=== PATIENT | male | born 1965 | race Caucasian/White ===

== ENCOUNTER 2017-04-23 14:16 | Inpatient (IN) ==
[2017-04-23] MEDS ORDERED: ROBAXIN PO PRN (16:18)
[2017-04-23] MEDS ORDERED: NORCO-10 PO PRN (16:18)
[2017-04-23 16:54] LABS: ALLEN TEST YES; BE 9.7 mmoll (-3.0-3.0); BLOOD TYPE ARTERIAL; DRAW SITE R RADIAL; METHB 1.1 % (0.0-1.5); O2(CT) 19.3 mL/dL (15.0-23.0); PO2(98.6) 71 mmHg (60-100); SAMPLE BLOOD; SAO2 96.4 % (95.0-100.0); THB 15.7 g/dL (11.5-17.4); pH(98.6) 7.32 (7.35-7.45)
[2017-04-23 17:02] LABS: PCO2(98.6) 77 mmHg (35-45)
[2017-04-23 17:03] LABS: MODALITY CANNULA
[2017-04-23] MEDS: DUONEB (A & A) INH PRN ×2 (17:18→19:05)
[2017-04-23 17:43] LABS: MANUAL DIFF NEEDED? NO
[2017-04-23 17:46] LABS: BASO% 0.3 % (0.0-0.8); EOS# 0.26 X1000 (0.0-0.7); EOS% 3.4 % (0.0-10.0); HEMATOCRIT 48.8 % (42.0-52.0); HEMOGLOBIN 15.5 g/dL (14.0-18.0); LYMPH# 2.37 X1000 (1.2-3.4); LYMPH% 30.7 % (20.5-51.1); MCH 29.1 PG (27-31); MCHC 31.8 g/dL (33-37); MCV 91.7 FL (81-99); MONO# 0.75 X1000 (0.11-0.59); MONO% 9.7 % (1.7-9.3); MPV 10.9 FL (7.4-10.4); NEUT% 55.9 % (42.2-75.2); PLT 174 X1000 (130-400); RBC 5.32 XMIL (4.7-6.1)
[2017-04-23] MEDS: GLUCOPHAGE PO SCH (18:10)
[2017-04-23 18:12] LABS: AGAP 7; ALBUMIN 3.7 g/dL (3.5-5.0); ALKALINE PHOSPHATASE 75 U/L (32-122); BUN 14 mg/dL (8-22); CALCIUM 8.5 mg/dL (8.8-10.2); CHLORIDE 95 mmol/L (98-107); COSMO 275; GOT 15 U/L (10-34); GPT 11 U/L (10-44); POTASSIUM 4.7 mmol/L (3.5-5.1); SODIUM 137 mmol/L (136-145); TCO2 35 mmol/L (25-35); TOTAL BILIRUBIN 0.38 mg/dL (0.20-1.00); TOTAL PROTEIN 6.9 g/dL (6.3-8.3)
[2017-04-23] MEDS: LASIX IV SCH (18:28)
[2017-04-23] MEDS: PROTONIX IV SCH (18:29)
[2017-04-23] MEDS: ZOSYN 3.375 GM in NS 50 ML IV SCH (18:29)
[2017-04-23] MEDS: LOVENOX SUBQ SCH (18:30)
--- NOTE | 2017-04-23 18:48 | Diag Imaging Result Doc PS360 ---
EXAM: CHEST-2 VIEWS INDICATION: SOB TECHNIQUE: 2 views COMPARISON: 08/31/2014 FINDINGS: The lungs are grossly clear. There is no discrete pleural fluid collection or pneumothorax. The cardiomediastinal silhouette and central vasculature are grossly unremarkable. IMPRESSION: No evidence of acute pathology by plain radiograph. Electronically signed by Samir Shell 04/23/2017 6:45 PM
[2017-04-23] MEDS: ADVAIR 250/50 DISKUS INH SCH (19:05)
[2017-04-23] MEDS ORDERED: NICODERM PATCH TD PRN (21:08)
[2017-04-23] MEDS: COZAAR PO SCH (22:05)
[2017-04-23] MEDS: NEURONTIN PO SCH (22:05)
[2017-04-23] MEDS: COREG PO SCH (22:05)
[2017-04-23] MEDS: HUMALOG SUBQ SCH (22:05)
[2017-04-23] MEDS: PRAVACHOL PO SCH (22:05)
[2017-04-24] MEDS: ZOSYN 3.375 GM in NS 50 ML IV SCH ×4 (00:39→18:42)
--- NOTE | 2017-04-24 04:43 | HISTORY AND PHYSICAL ---
CHIEF COMPLAINT: Shortness of breath, cough, wheezing, dyspnea on exertion. No chest pain, swelling of feet. HISTORY OF PRESENT ILLNESS: He is a 52-year-old, white gentleman, noncompliant. Came to the office after treating with outpatient treatment with above symptoms. He was very hypoxic. Continues to smoke. He has 2+ pedal edema in both legs. Chest x-ray, had COPD changes, mild CHF. He was admitted to the hospital for decompensated systolic heart failure as well as COPD exacerbation. PAST MEDICAL HISTORY: COPD/asthmatic bronchitis, type 2 diabetes, metabolic syndrome, hypertension, chronic hepatitis C, hyperlipidemia, history of chronic systolic heart failure due to ischemic cardiomyopathy, status post stent in the LAD, EF of 40%, pulmonary hypertension. 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 MEDICATIONS: Aldactone 25 mg daily, aspirin 325 daily, Coreg 6.25 p.o. b.i.d., Cozaar 25 daily, Lanoxin 125 mcg daily, DuoNeb 1 puff q.6, Lasix 40 mg daily, metformin 1000 p.o. b.i.d., MiraLAX as needed, Protonix 40 daily, pravastatin 40 daily, Proventil as needed. ALLERGIES: None known. SOCIAL HISTORY: . One child. Lives in [place]. Smoking half a pack a day. FAMILY HISTORY: Father at the age of 74 with heart failure. Mom is 66, healthy. HEALTH MAINTENANCE: Flu vaccine 2013, pneumococcal 2012. Last prostate exam and PSA March 2017. REVIEW OF SYSTEMS: HEENT: No headache. No vision problem. No earache. No sore throat. Neck: No goiter. No lymphadenopathy. No bruit. Cardiopulmonary: No chest pain, shortness of breath, cough, and wheezing. No PND. No orthopnea, swelling of feet. GI: No nausea, vomiting, abdominal pain. No altered bowel habits, bleeding per rectum. : No history of hesitancy, frequency, dysuria, hematuria. Musculoskeletal: No joint pain. Neurologic: No focal symptoms or weakness. PHYSICAL EXAMINATION: VITAL SIGNS: He is afebrile. Vitals are stable, 87% on 2 L, 6 feet 2 inches, 279 pounds. HEENT: Atraumatic, normocephalic. Plethoric face. TMs are normal. Nose and throat congested. NECK: Supple. JVD slightly elevated. CHEST: Markedly wheezing. CARDIAC: Very distant heart sounds. ABDOMEN: Belly is soft, obese, nontender. Good bowel sounds. RECTAL: Deferred. EXTREMITIES: There is 2+ pedal edema in both legs. NEUROLOGIC: No focal deficits. No signs of gangrene noted. INVESTIGATIONS: CBC: White cell count 7.7, hematocrit 48, platelets 174,000. ABG: PH is 7.32, pCO2 77, PO2 71, bicarb 32 on 2 L. Carboxyhemoglobin 8.2. Sodium 137, potassium 4.7, chloride 95, BUN 14, creatinine 0.9, glucose 105, and calcium 8.5. ProBNP is slightly elevated. Cardiac enzymes are normal. Chest x-ray: Cardiomegaly, mild CHF, and COPD changes, otherwise stable. ASSESSMENT AND PLAN: 1. A 52-year-old, white gentleman admitted to the hospital with shortness of breath due to combination of chronic obstructive pulmonary disease and mild decompensated systolic heart failure. Plan is oxygen judiciously, 1 L. 2. Carboxyhemoglobin is high. Nicotrol patches. 3. Chronic obstructive pulmonary disease. Intravenous Zosyn, Advair bronchodilators, and intravenous steroids. 4. Ischemic cardiomyopathy, ejection fraction of 40%. Lanoxin, Coreg, losartan , intravenous Lasix. 5. Type 2 diabetes. On metformin, sliding scale with insulin coverage. 6. Deep venous thrombosis and gastrointestinal prophylaxis with Lovenox and Protonix respectively. 7. Chronic hepatitis C, stable. Last viral load alpha-fetoprotein is negative. 8. History of coronary artery disease with a stent in the left anterior descending. Continue on aspirin, Imdur, and beta blockers. 9. Hyperlipidemia, on Pravachol. 10. Chronic pain. He was going to the [facility], [facility]one [facility] with Dr. Faustin. 11. Constipation, on MiraLAX. 12. We will follow up. cc: Trenton Valdes MD MTDD
[2017-04-24] MEDS: LASIX IV SCH ×2 (05:38→18:36)
[2017-04-24] MEDS: HUMALOG SUBQ SCH ×4 (06:48→22:12)
[2017-04-24] MEDS: DUONEB (A & A) INH PRN ×4 (07:34→21:45)
[2017-04-24] MEDS: ADVAIR 250/50 DISKUS INH SCH ×2 (07:34→19:35)
[2017-04-24] MEDS: SPIRIVA INH SCH (07:43)
[2017-04-24] MEDS: BREO ELLIPTA 100/25 MCG INH INH SCH (08:25)
[2017-04-24] MEDS ORDERED: SOLU-MEDROL IV SCH (09:00)
[2017-04-24] MEDS: ASPIRIN PO SCH (09:43)
[2017-04-24] MEDS: COZAAR PO SCH ×2 (09:43→20:24)
[2017-04-24] MEDS: GLUCOPHAGE PO SCH ×2 (09:43→17:10)
[2017-04-24] MEDS: MIRALAX PO SCH (09:43)
[2017-04-24] MEDS: NEURONTIN PO SCH ×2 (09:44→20:24)
[2017-04-24] MEDS: IMDUR PO SCH (09:44)
[2017-04-24] MEDS: ALDACTONE PO SCH (09:44)
[2017-04-24] MEDS: COREG PO SCH ×2 (09:44→20:24)
[2017-04-24] MEDS: LANOXIN PO SCH (09:46)
[2017-04-24 14:33] LABS: ALLEN TEST YES; BE 12.1 mmoll (-3.0-3.0); BLOOD TYPE ARTERIAL; DRAW SITE R RADIAL; METHB 0.9 % (0.0-1.5); O2(CT) 19.4 mL/dL (15.0-23.0); PO2(98.6) 50 mmHg (60-100); SAMPLE BLOOD; SAO2 87.7 % (95.0-100.0); THB 16.6 g/dL (11.5-17.4); pH(98.6) 7.33 (7.35-7.45)
[2017-04-24 14:34] LABS: MODALITY CANNULA; PCO2(98.6) 81 mmHg (35-45)
[2017-04-24] MEDS: PROTONIX IV SCH (17:10)
[2017-04-24] MEDS: SODIUM CHLORIDE 0.9% INJ SCH (17:10)
[2017-04-24] MEDS: LOVENOX SUBQ SCH (17:10)
[2017-04-24] MEDS: PRAVACHOL PO SCH (20:25)
--- NOTE | 2017-04-24 20:42 | PROGRESS NOTE ---
DATE: 04/24/2017 NOTE: Level 3 documentation. SUBJECTIVE: Patient was seen twice in the morning as well as in the evening. He was unstable on the floor around noon time. He became hypoxic with wheezing and increased respiratory rate and transferred to the [facility] on BiPAP. This morning he looks stable. He denies any chest pain. Basically shortness of breath and wheezing. He complains of leg cramps after taking Lasix. He still has edema. Slightly orthopnea. REVIEW OF SYSTEMS: Shortness of breath. OBJECTIVE: Vital signs: Temperature is 98 degrees, blood pressure 110/70, BiPAP machine on 93%. Input and output are -2 L. HEENT: Plethoric face. Neck: Supple. Chest: Bilateral wheezing. Heart: Distant heart sounds. Abdomen: Belly is soft, nontender. Good bowel sounds. Extremities: 1+ pedal edema in both legs. Neurologic: No obvious neurological deficits. LABORATORIES AND IMAGING: Arterial blood gases: PH is 7.33, pCO2 81, PO2 50 on 36%. Chest x-ray was stable. ASSESSMENT AND PLAN: 1. Acute respiratory failure due to underlying COPD and CHF. Plan is BiPAP. 2. Edema due to chronic systolic heart failure. IV Lasix and Aldactone. 3. Chronic obstructive pulmonary disease on bronchodilators, Spiriva, Breo and IV antibiotics with Zosyn and IV steroids. 4. Deep venous thrombosis and gastrointestinal prophylaxis with Lovenox and Protonix. 5. Type 2 diabetes. On metformin. 6. Chronic hepatitis C, stable. The patient has been transferred to step-down unit for better nursing care. LEVEL OF DOCUMENTATION: 35 minutes. cc: Trenton Valdes MD
[2017-04-25] MEDS: ZOSYN 3.375 GM in NS 50 ML IV SCH ×4 (01:51→21:39)
[2017-04-25] MEDS: DUONEB (A & A) INH PRN ×4 (04:43→21:42)
[2017-04-25 05:00] LABS: ALLEN TEST YES; BE 14.3 mmoll (-3.0-3.0); BLOOD TYPE ARTERIAL; DRAW SITE R RADIAL; METHB 0.8 % (0.0-1.5); O2(CT) 20.2 mL/dL (15.0-23.0); PO2(98.6) 86 mmHg (60-100); SAMPLE BLOOD; SAO2 97.8 % (95.0-100.0); THB 15.2 g/dL (11.5-17.4); pH(98.6) 7.29 (7.35-7.45)
[2017-04-25 05:02] LABS: MODALITY BI PAP; PCO2(98.6) 96 mmHg (35-45)
[2017-04-25 05:10] LABS: MANUAL DIFF NEEDED? NO
[2017-04-25 05:20] LABS: BASO% 0.1 % (0.0-0.8); EOS# 0.02 X1000 (0.0-0.7); EOS% 0.1 % (0.0-10.0); HEMATOCRIT 46.8 % (42.0-52.0); HEMOGLOBIN 14.7 g/dL (14.0-18.0); IMM GRAN# 0.02 X1000 (0.0-0.04); IMM GRAN% 0.1 % (0.0-0.5); LYMPH# 1.75 X1000 (1.2-3.4); LYMPH% 12.4 % (20.5-51.1); MCH 28.7 PG (27-31); MCHC 31.4 g/dL (33-37); MCV 91.2 FL (81-99); MONO# 1.06 X1000 (0.11-0.59); MONO% 7.5 % (1.7-9.3); MPV 10.7 FL (7.4-10.4); NEUT% 79.8 % (42.2-75.2); PLT 193 X1000 (130-400); RBC 5.13 XMIL (4.7-6.1)
[2017-04-25] MEDS ORDERED: SOLU-MEDROL IV ONE (05:33)
[2017-04-25 05:40] LABS: AGAP 8; BUN 22 mg/dL (8-22); CALCIUM 8.4 mg/dL (8.8-10.2); CHLORIDE 93 mmol/L (98-107); COSMO 284; POTASSIUM 4.8 mmol/L (3.5-5.1); SODIUM 141 mmol/L (136-145); TCO2 40 mmol/L (25-35)
[2017-04-25] MEDS: LASIX IV SCH (05:45)
[2017-04-25] MEDS: SOLU-MEDROL IV SCH ×3 (06:48→21:39)
[2017-04-25] MEDS: HUMALOG SUBQ SCH ×4 (06:48→21:40)
--- NOTE | 2017-04-25 07:46 | Diag Imaging Result Doc PS360 ---
EXAM: CHEST-2 VIEWS INDICATION: hypoxia TECHNIQUE: 3 views COMPARISON: 04/23/2017 FINDINGS: There is mild underexposure at the edges of the lungs. There appears to be mild subsegmental atelectasis has developed at the right lung base. The left lung remains clear. Cardiac silhouette is stable. IMPRESSION: Development of mild atelectasis at the right lung base as described. Electronically signed by Samir Shell 04/25/2017 7:43 AM
[2017-04-25] MEDS: GLUCOPHAGE PO SCH ×2 (08:38→16:19)
[2017-04-25] MEDS: COZAAR PO SCH ×2 (08:38→21:38)
[2017-04-25] MEDS: ASPIRIN PO SCH (08:39)
[2017-04-25] MEDS: COREG PO SCH ×2 (08:39→21:38)
[2017-04-25] MEDS: IMDUR PO SCH (08:39)
[2017-04-25] MEDS: ALDACTONE PO SCH (08:39)
[2017-04-25] MEDS: LANOXIN PO SCH (08:39)
[2017-04-25] MEDS: NEURONTIN PO SCH ×2 (08:39→21:38)
[2017-04-25] MEDS: MIRALAX PO SCH (08:40)
[2017-04-25] MEDS: SUBOXONE 8 MG/2 MG SL SCH ×2 (10:00→21:39)
[2017-04-25] MEDS: ADVAIR 250/50 DISKUS INH SCH ×2 (12:24→21:54)
[2017-04-25] MEDS: SPIRIVA INH SCH (12:24)
[2017-04-25] MEDS: BREO ELLIPTA 100/25 MCG INH INH SCH (12:24)
[2017-04-25] MEDS: LOVENOX SUBQ SCH (15:49)
[2017-04-25] MEDS: PROTONIX IV SCH (15:49)
[2017-04-25] MEDS ORDERED: LEVAQUIN 500 MG/D5W 500 MG/100 ML IVPB IV SCH (21:00)
[2017-04-25] MEDS: PRAVACHOL PO SCH (21:38)
--- NOTE | 2017-04-25 22:06 | PROGRESS NOTE ---
DATE: 04/25/2017 SUBJECTIVE: The patient is not using BiPAP machine. He is withdrawing from smoking, on Suboxone. Denies any chest pain, a little bit shortness of breath, cough, wheezing, swelling is better. He complains of leg cramps from Lasix. REVIEW OF SYSTEMS: Otherwise none reported. OBJECTIVE: Vital signs: Temperature is 98 degrees, pulse is 67, blood pressure is 110/66, 93%. Input and output -650 mL. HEENT: Atraumatic, normocephalic. Pupils equal, reactive to light. Plethoric face. Chest: Bilateral expiratory wheezing. Heart: Sounds are very distant. Abdomen: Belly is soft, nontender. Good bowel sounds. No masses palpable. 1+ pedal edema in both legs. Neurologic: No obvious neurological deficits. INVESTIGATIONS: CBC: White cell count 14, hematocrit 46, platelets 193,000. ABG: PH is 7.29, pCO2 96, PO2 86, on BiPAP 50%. SMA7: Sodium 140, potassium 4.8, chloride 93, BUN 22, creatinine 0.9, glucose 193. Calcium 8.4. ProBNP is done. Cardiac enzymes were negative. Chest x-ray: Questionable right lower lobe pneumonia. ASSESSMENT AND PLAN: 1. Acute respiratory failure with underlying COPD. Retaining CO2. Continue on Nicotrol patches, oxygen, BiPAP as needed, bronchodilators, IV steroids, IV antibiotics with Zosyn and add Levaquin. 2. Ischemic cardiomyopathy, stable. Continue present medical therapy. 3. Tobacco abuse. Nicotine cessation programs. 4. Chronic pain. Withdrawals. We will initiate Suboxone. 5. CHF. Decrease IV Lasix once daily. LEVEL OF DOCUMENTATION: 25 minutes. cc: Trenton Valdes MD
[2017-04-25] MEDS: LEVAQUIN 500 MG/D5W 500 MG/100 ML IVPB IV SCH ×2 (22:24→23:00)
[2017-04-26] MEDS: ZOSYN 3.375 GM in NS 50 ML IV SCH ×4 (02:31→20:45)
[2017-04-26] MEDS: SOLU-MEDROL IV SCH ×4 (05:44→22:21)
[2017-04-26] MEDS: HUMALOG SUBQ SCH ×4 (06:12→21:05)
[2017-04-26] MEDS: MIRALAX PO SCH (08:13)
[2017-04-26] MEDS: ADVAIR 250/50 DISKUS INH SCH ×2 (08:14→21:15)
[2017-04-26] MEDS: ASPIRIN PO SCH (08:14)
[2017-04-26] MEDS: IMDUR PO SCH (08:15)
[2017-04-26] MEDS: ALDACTONE PO SCH (08:15)
[2017-04-26] MEDS: NEURONTIN PO SCH ×2 (08:15→20:45)
[2017-04-26] MEDS: COZAAR PO SCH ×2 (08:15→20:45)
[2017-04-26] MEDS: COREG PO SCH ×2 (08:15→20:45)
[2017-04-26] MEDS: BREO ELLIPTA 100/25 MCG INH INH SCH (08:15)
[2017-04-26] MEDS: GLUCOPHAGE PO SCH ×2 (08:16→16:21)
[2017-04-26] MEDS: LANOXIN PO SCH (08:17)
[2017-04-26] MEDS: SUBOXONE 8 MG/2 MG SL SCH ×2 (08:17→21:15)
[2017-04-26] MEDS ORDERED: LASIX IV SCH (09:00)
[2017-04-26] MEDS: SPIRIVA INH SCH (15:15)
[2017-04-26] MEDS: DUONEB (A & A) INH PRN ×2 (15:15→21:15)
[2017-04-26] MEDS: LOVENOX SUBQ SCH (16:21)
[2017-04-26] MEDS: PROTONIX IV SCH (16:22)
[2017-04-26] MEDS: SODIUM CHLORIDE 0.9% INJ SCH (16:22)
[2017-04-26] MEDS: PRAVACHOL PO SCH (20:45)
[2017-04-27] MEDS: ZOSYN 3.375 GM in NS 50 ML IV SCH ×4 (02:17→20:42)
[2017-04-27] MEDS: DUONEB (A & A) INH PRN ×4 (03:05→21:46)
[2017-04-27 05:33] LABS: ALLEN TEST YES; BE 13.9 mmoll (-3.0-3.0); BLOOD TYPE ARTERIAL; DRAW SITE R RADIAL; METHB 0.9 % (0.0-1.5); O2(CT) 21.3 mL/dL (15.0-23.0); PO2(98.6) 98 mmHg (60-100); SAMPLE BLOOD; THB 15.7 g/dL (11.5-17.4); pH(98.6) 7.38 (7.35-7.45)
[2017-04-27 05:35] LABS: MODALITY BI PAP; PCO2(98.6) 73 mmHg (35-45)
--- NOTE | 2017-04-27 05:36 | PROGRESS NOTE ---
DATE: 04/26/2017 SUBJECTIVE: 1. The patient is complaining of itching while getting IV Levaquin. 2. Patient also choked while drinking liquids while on the BiPAP machine. Still coughing up, shortness of breath. Swelling is improved. REVIEW OF SYSTEMS: None reported. OBJECTIVE: On exam, he is on 5 L nasal cannula 95%. Temp is 98 degrees, pulse is 73, respirations 18, blood pressure is 128/69. LABS: No labs were done. ASSESSMENT AND PLAN: 1. Acute respiratory failure with underlying chronic obstructive pulmonary disease on BiPAP machine at nighttime. 2. Chronic pain on Suboxone. 3. Chronic nicotine abuse. Nicotrol patches. 4. Questionable itching from Levaquin. Will discontinue Levaquin. 5. Chronic ischemic cardiomyopathy, congestive heart failure stable. 6. Deep venous thrombosis and gastrointestinal prophylaxis, as per the order sheet. 7. Continue present medical therapy. 8. Elevated blood sugar due to prednisone. Continue to monitor on sliding scale with insulin coverage. 9. We will repeat the blood gas in the morning. LEVEL OF DOCUMENTATION: 25 minutes. cc: Trenton Valdes MD
[2017-04-27] MEDS: SOLU-MEDROL IV SCH ×3 (05:55→20:41)
[2017-04-27] MEDS: HUMALOG SUBQ SCH ×5 (05:56→20:42)
[2017-04-27] MEDS: BREO ELLIPTA 100/25 MCG INH INH SCH (07:25)
[2017-04-27] MEDS: ADVAIR 250/50 DISKUS INH SCH ×2 (07:25→18:56)
[2017-04-27] MEDS: SPIRIVA INH SCH (07:25)
[2017-04-27] MEDS: NEURONTIN PO SCH ×2 (09:40→20:43)
[2017-04-27] MEDS: COREG PO SCH ×2 (09:40→20:43)
[2017-04-27] MEDS: IMDUR PO SCH (09:40)
[2017-04-27] MEDS: GLUCOPHAGE PO SCH ×2 (09:40→16:47)
[2017-04-27] MEDS: MIRALAX PO SCH ×2 (09:40→09:45)
[2017-04-27] MEDS: LANOXIN PO SCH (09:40)
[2017-04-27] MEDS: ALDACTONE PO SCH (09:40)
[2017-04-27] MEDS: COZAAR PO SCH ×2 (09:43→20:43)
[2017-04-27] MEDS: SUBOXONE 8 MG/2 MG SL SCH (09:43)
[2017-04-27] MEDS: ASPIRIN PO SCH (09:43)
[2017-04-27] MEDS: LASIX IV SCH (09:43)
[2017-04-27] MEDS: LOVENOX SUBQ SCH (16:47)
[2017-04-27] MEDS: PROTONIX PO SCH (16:47)
--- NOTE | 2017-04-27 18:33 | PROGRESS NOTE ---
DATE: 04/27/2017 SUBJECTIVE: The patient is a little better. Using BiPAP machine in the night time. Decreased swelling of feet. No chest pain. Still wheezing and shortness of breath. REVIEW OF SYSTEMS: None reported. OBJECTIVE: Vital Signs: Afebrile. Pulse is 60. Respirations 20. Blood pressure is 128 x 77, 3 L nasal cannula 90%. HEENT: Plethoric face. Neck: Supple. Chest: Bilateral expiratory wheezing. Heart: Sounds are very distant. Abdomen: Belly is soft, nontender. Extremities: Decreased peripheral edema. Neurologic: No obvious neurological deficits. INVESTIGATIONS: ABG, pH is 7.38, pCO2 73, PO2 98, BiPAP of 14/6 on 35% FiO2. ASSESSMENT: 1. Acute respiratory failure with underlying chronic obstructive pulmonary disease. Continue on BiPAP in the nighttime. Decrease IV steroids from 60-40 mg q.8. 2. Chronic systolic heart failure due to ischemic cardiomyopathy, improving. Decreased IV Lasix 40 IV once a day. Continue present medical therapy. 3. Elevated blood sugar from steroids. Continue on metformin and sliding scale with insulin coverage. 4. Hyperlipidemia on Pravachol and chronic obstructive pulmonary disease with possible right lower lobe pneumonia. IV Zosyn and bronchodilators. 5. Chronic pain on Suboxone. 6. Tobacco abuse. Continue to abstain from smoking. PLAN: We will continue present therapy and repeat the labs CBC, SMA 7, chest x- ray, ABG on Sunday. LEVEL OF DOCUMENTATION: Twenty-five minutes. cc: Trenton Valdes MD MTDD
[2017-04-27] MEDS: PRAVACHOL PO SCH (20:43)
[2017-04-28] MEDS: SUBOXONE 8 MG/2 MG SL SCH ×3 (02:10→22:31)
[2017-04-28] MEDS: SOLU-MEDROL IV SCH ×4 (02:11→22:26)
[2017-04-28] MEDS: DUONEB (A & A) INH PRN ×4 (03:22→21:34)
[2017-04-28] MEDS: ZOSYN 3.375 GM in NS 50 ML IV SCH ×4 (03:23→22:24)
[2017-04-28] MEDS: HUMALOG SUBQ SCH ×4 (06:09→22:25)
[2017-04-28] MEDS: ADVAIR 250/50 DISKUS INH SCH ×2 (07:10→19:07)
[2017-04-28] MEDS: SPIRIVA INH SCH (07:10)
[2017-04-28] MEDS: BREO ELLIPTA 100/25 MCG INH INH SCH (07:10)
[2017-04-28] MEDS: GLUCOPHAGE PO SCH ×2 (08:02→16:33)
[2017-04-28] MEDS: LASIX IV SCH (08:02)
[2017-04-28] MEDS: NEURONTIN PO SCH ×2 (08:02→22:24)
[2017-04-28] MEDS: ASPIRIN PO SCH (08:02)
[2017-04-28] MEDS: LANOXIN PO SCH (08:03)
[2017-04-28] MEDS: COREG PO SCH ×2 (08:04→22:25)
[2017-04-28] MEDS: COZAAR PO SCH ×2 (08:04→22:25)
[2017-04-28] MEDS: IMDUR PO SCH (08:04)
[2017-04-28] MEDS: ALDACTONE PO SCH (08:04)
[2017-04-28] MEDS: MIRALAX PO SCH (08:06)
--- NOTE | 2017-04-28 13:24 | PROGRESS NOTE ---
DATE: 04/28/2017 SUBJECTIVE: Mr. Adames is a 52-year-old white gentleman admitted to the hospital with increasing shortness of breath, decreased exercise tolerance, leg swelling. The patient found to have acute on chronic respiratory failure, decompensated congestive heart failure and COPD exacerbation. Since admission, patient is doing some better. He is requiring BiPAP. The patient still has some cough with scanty sputum production. No typical chest pain or palpitation. No nausea or vomiting. Denied any diarrhea, blood or mucus in the stool. No dysuria or hematuria. PAST MEDICAL HISTORY: Significant for COPD, NIDDM, hypertension, chronic hepatitis C, hyperlipidemia, history of chronic systolic heart failure due to ischemic cardiomyopathy with pulmonary hypertension. Admission history and physical noted. OBJECTIVE: Vital Signs: On examination, his vital signs revealed blood pressure 133/80, pulse 64, respirations 20, temperature 97.9 degrees. Skin: Patient does have plethoric face. Pupils reacting to light. No pharyngeal congestion. Ears and nose benign. Neck: Supple. No JVD, thyromegaly or lymphadenopathy. Chest: Bilateral good air entry present. Bibasilar crepitation. Occasional wheezing. Cardiovascular: S1 and S2 heard. There is a 2/6 systolic murmur at the apex. Abdomen: Soft, globular. Bowel sounds present. Extremities: No cyanosis, clubbing. Leg swelling improved. No acute DVT. ADVANCED REGISTERED NURSE: Alert, awake, able to move all 4 limbs. LABS: The patient's blood gas done yesterday noted. Admission lab data and history and physical reviewed. CONSIDERATION: 1. Acute on chronic respiratory failure. 2. Chronic obstructive pulmonary disease exacerbation, uncompensated. 3. Systolic heart failure. 4. Non insulin-dependent diabetes mellitus. 5. Hypertension. 6. Morbid obesity. 7. Ischemic cardiomyopathy. Patient admission chest x-ray did not reveal any acute lung pathology. I am going to repeat blood work and chest x-ray tomorrow. Continue current treatment. Close observation. Overall plan discussed with the patient, and he is in agreement. cc: MD Trenton Mcwilliams MD
[2017-04-28] MEDS: LOVENOX SUBQ SCH (16:33)
[2017-04-28] MEDS: PROTONIX PO SCH (16:33)
[2017-04-28] MEDS: PRAVACHOL PO SCH (22:24)
[2017-04-29] MEDS: DUONEB (A & A) INH PRN ×4 (03:24→21:46)
[2017-04-29] MEDS: ZOSYN 3.375 GM in NS 50 ML IV SCH ×4 (04:00→20:20)
[2017-04-29 04:45] LABS: ALLEN TEST YES; BLOOD TYPE ARTERIAL; DRAW SITE R RADIAL; O2(CT) 21.2 mL/dL (15.0-23.0); PO2(98.6) 78 mmHg (60-100); SAMPLE BLOOD; SAO2 97.1 % (95.0-100.0); pH(98.6) 7.32 (7.35-7.45)
[2017-04-29 04:46] LABS: MODALITY BI PAP
[2017-04-29 04:47] LABS: PCO2(98.6) 88 mmHg (35-45)
[2017-04-29] MEDS: SOLU-MEDROL IV SCH ×4 (05:07→22:03)
[2017-04-29] MEDS: SODIUM CHLORIDE 0.9% INJ SCH (05:07)
[2017-04-29 05:51] LABS: BASO% 0.1 % (0.0-0.8); HEMATOCRIT 48.5 % (42.0-52.0); HEMOGLOBIN 15.3 g/dL (14.0-18.0); IMM GRAN# 0.03 X1000 (0.0-0.04); IMM GRAN% 0.3 % (0.0-0.5); LYMPH# 0.72 X1000 (1.2-3.4); LYMPH% 8.2 % (20.5-51.1); MANUAL DIFF NEEDED? YES; MCH 28.5 PG (27-31); MCHC 31.5 g/dL (33-37); MCV 90.5 FL (81-99); MONO% 4.6 % (1.7-9.3); MPV 11.5 FL (7.4-10.4); NEUT% 86.8 % (42.2-75.2); PLT 141 X1000 (130-400); RBC 5.36 XMIL (4.7-6.1)
[2017-04-29 05:54] LABS: AGAP 5; ALBUMIN 3.6 g/dL (3.5-5.0); ALKALINE PHOSPHATASE 58 U/L (32-122); BUN 31 mg/dL (8-22); CALCIUM 8.7 mg/dL (8.8-10.2); CHLORIDE 96 mmol/L (98-107); COSMO 293; GOT 9 U/L (10-34); GPT 12 U/L (10-44); MAGNESIUM 1.9 mg/dL (1.5-2.7); POTASSIUM 5.1 mmol/L (3.5-5.1); SODIUM 140 mmol/L (136-145); TCO2 39 mmol/L (25-35); TOTAL BILIRUBIN 0.31 mg/dL (0.20-1.00); TOTAL PROTEIN 6.1 g/dL (6.3-8.3)
[2017-04-29 06:21] LABS: LYMPHS 16 % (21-51)
[2017-04-29] MEDS: HUMALOG SUBQ SCH ×4 (06:27→20:21)
--- NOTE | 2017-04-29 08:18 | Diag Imaging Result Doc PS360 ---
EXAM: CHEST-2 VIEWS HISTORY: hypoxia TECHNIQUE: Two views COMPARISON: 04/25/2017 FINDINGS: The lungs are hyperexpanded. The heart is borderline mildly prominent. The vessels are not distended. There is an infiltrate posteriorly in the right lower lobe. The left lung is clear. IMPRESSION: Right lower lobe pneumonia. Electronically signed by Josse Munguia 04/29/2017 8:16 AM
[2017-04-29] MEDS: GLUCOPHAGE PO SCH ×2 (08:26→17:20)
[2017-04-29] MEDS: ALDACTONE PO SCH (08:26)
[2017-04-29] MEDS: IMDUR PO SCH (08:26)
[2017-04-29] MEDS: ASPIRIN PO SCH (08:26)
[2017-04-29] MEDS: NEURONTIN PO SCH ×2 (08:27→20:22)
[2017-04-29] MEDS: LASIX IV SCH (08:29)
[2017-04-29] MEDS: SUBOXONE 8 MG/2 MG SL SCH ×2 (08:29→20:57)
[2017-04-29] MEDS: LANOXIN PO SCH (08:30)
[2017-04-29] MEDS: MIRALAX PO SCH (08:31)
[2017-04-29] MEDS: COREG PO SCH ×2 (08:31→22:00)
[2017-04-29] MEDS: COZAAR PO SCH ×2 (08:32→20:22)
[2017-04-29] MEDS: ADVAIR 250/50 DISKUS INH SCH ×2 (09:24→19:23)
[2017-04-29] MEDS: BREO ELLIPTA 100/25 MCG INH INH SCH (09:25)
[2017-04-29] MEDS: SPIRIVA INH SCH (09:25)
[2017-04-29] MEDS: DOXYCYCLINE PO SCH ×2 (10:47→20:22)
[2017-04-29] MEDS: LOVENOX SUBQ SCH (15:24)
[2017-04-29] MEDS: PROTONIX PO SCH (15:29)
--- NOTE | 2017-04-29 15:30 | PROGRESS NOTE ---
DATE: 04/29/2017 SUBJECTIVE: Mr. Adames is feeling much better. Cough and chest congestion improving. No nausea or vomiting. No high-grade fever or chills. The patient claimed he was decreasing his oxygen by himself as he does not want to go home on oxygen. The patient advised not to touch the oxygen flow. Chest x-ray done this morning did reveal right lower lobe pneumonia. Clinically patient is doing better. OBJECTIVE: Vital signs: Noted. Patient is afebrile. Lungs: Bibasilar crepitation. Heart: S1 and S2 heard. Abdomen: Soft, globular. Bowel sounds present. CORPORATE PILOT: Alert, awake, able to move all 4 limbs. No acute DVT. LAB DATA: Done today, WBC count 8.78, hemoglobin 15.3, hematocrit 48.5, platelet count 141,000. Blood gas did reveal pCO2 of 88, pH 7.32. Advised patient not to touch oxygen flow. Electrolytes result reviewed. I am going to decrease his steroid to 40 mg IV q.8 instead of 60. I am going to add Mucomyst nebulizer treatment. Chest x-ray did reveal right lower lobe pneumonia. The patient is on Zosyn. Continue rest of the treatment. I am going to add doxycycline for atypical coverage. PROBLEMS: Include. 1. Acute on chronic respiratory failure. 2. Right lower lobe pneumonia. 3. Diabetes mellitus. 4. Obesity. 5. Hypertension. Overall plan discussed with the patient and he is in agreement. cc: MD Trenton Mcwilliams MD
[2017-04-29] MEDS: MUCOMYST 20% INH SCH (19:23)
[2017-04-29] MEDS: PRAVACHOL PO SCH (20:22)
[2017-04-30] MEDS: ZOSYN 3.375 GM in NS 50 ML IV SCH ×3 (03:17→15:19)
[2017-04-30] MEDS: DUONEB (A & A) INH PRN ×4 (03:35→19:05)
[2017-04-30] MEDS: SOLU-MEDROL IV SCH ×2 (05:56→18:30)
[2017-04-30] MEDS: HUMALOG SUBQ SCH ×5 (05:57→20:02)
[2017-04-30] MEDS: SPIRIVA INH SCH (07:35)
[2017-04-30] MEDS: MUCOMYST 20% INH SCH ×2 (07:35→19:05)
[2017-04-30] MEDS: BREO ELLIPTA 100/25 MCG INH INH SCH (07:36)
[2017-04-30] MEDS: ADVAIR 250/50 DISKUS INH SCH ×2 (07:36→19:05)
[2017-04-30] MEDS: GLUCOPHAGE PO SCH ×2 (08:01→16:03)
[2017-04-30] MEDS: MIRALAX PO SCH (08:28)
[2017-04-30] MEDS: COREG PO SCH ×2 (08:28→20:02)
[2017-04-30] MEDS: LANOXIN PO SCH (08:28)
[2017-04-30] MEDS: DOXYCYCLINE PO SCH ×2 (08:28→20:02)
[2017-04-30] MEDS: ASPIRIN PO SCH (08:29)
[2017-04-30] MEDS: SUBOXONE 8 MG/2 MG SL SCH ×2 (08:29→20:02)
[2017-04-30] MEDS: IMDUR PO SCH (08:30)
[2017-04-30] MEDS: LASIX IV SCH (08:30)
[2017-04-30] MEDS: ALDACTONE PO SCH (08:30)
[2017-04-30] MEDS: NEURONTIN PO SCH ×2 (08:30→20:02)
[2017-04-30] MEDS: COZAAR PO SCH ×2 (08:30→20:02)
[2017-04-30] MEDS: PROTONIX PO SCH (15:59)
[2017-04-30] MEDS: LOVENOX SUBQ SCH (16:03)
--- NOTE | 2017-04-30 19:31 | PROGRESS NOTE ---
DATE: 04/30/2017 SUBJECT: Events were noted over the weekend. He is using the BiPAP machine. He is extremely short of breath. He is asking for evaluation home oxygen and Trilogy machine. REVIEW OF SYSTEMS: None reported. OBJECTIVE: Vital Signs: Afebrile, pulse is 50, blood pressure 114/67, 93% on room air, I's and O's positive 640 mL. HEENT: Within normal limits. Neck: Supple. No lymphadenopathy. Chest: Decreased wheezing. Heart: Sounds are regular. Belly: Is soft, nontender, good bowel sounds. Extremities: No peripheral edema, cyanosis. Neuro: No neurological deficits. INVESTIGATIONS: CBC is normal on 04/29. ABG pH is 7.32, pCO2 88, 78 on BiPAP, SMA 7 is normal, LFTs were normal. ASSESSMENT AND PLAN: 1. Acute respiratory failure with underlying chronic obstructive pulmonary disease and possible infiltrate in the right lower lobe. Will check the chest x-ray, continue on IV Zosyn. Unable to tolerate Levaquin. He has already started on doxycycline. 2. Evaluation of home oxygen, will check the ABG on room air also pulse oximetry and also on exertion, will do the Air Shovel Operator consult. 3. Type 2 diabetes stable. 4. Coronary artery disease, congestive heart failure stable. Plan of care is continue present medical therapy. Decrease IV steroids and will check the chest x-ray in the morning. LEVEL OF DOCUMENTATION: 25 minutes. cc: Trenton Valdes MD
[2017-04-30] MEDS: PRAVACHOL PO SCH (20:02)
[2017-05-01] MEDS: ZOSYN 3.375 GM in NS 50 ML IV SCH ×5 (00:37→20:34)
[2017-05-01 03:40] LABS: ALLEN TEST YES; BE 13.1 mmoll (-3.0-3.0); BLOOD TYPE ARTERIAL; DRAW SITE R RADIAL; METHB 0.9 % (0.0-1.5); SAMPLE BLOOD; SAO2 87.1 % (95.0-100.0); pH(98.6) 7.36 (7.35-7.45)
[2017-05-01 03:41] LABS: MODALITY ROOM AIR
[2017-05-01 03:42] LABS: PCO2(98.6) 76 mmHg (35-45); PO2(98.6) 49 mmHg (60-100)
[2017-05-01] MEDS: HUMALOG SUBQ SCH ×4 (06:07→20:35)
[2017-05-01] MEDS: SOLU-MEDROL IV SCH ×2 (06:07→17:52)
--- NOTE | 2017-05-01 07:37 | Diag Imaging Result Doc PS360 ---
CHEST-2 VIEWS - 05/01/2017 INDICATION: hypoxia TECHNIQUE: COMPARISON: 04/29/2017 FINDINGS: There is decrease in the infiltrate in the posterior right costophrenic angle. No new infiltrates. Heart size and pulmonary vascularity are top normal. IMPRESSION: Slight decrease in the right basilar infiltrate/pneumonia. Electronically signed by Jake Hernandez 05/01/2017 7:35 AM
[2017-05-01] MEDS: DUONEB (A & A) INH PRN ×3 (07:55→19:33)
[2017-05-01] MEDS: SPIRIVA INH SCH (07:55)
[2017-05-01] MEDS: BREO ELLIPTA 100/25 MCG INH INH SCH (07:55)
[2017-05-01] MEDS: ADVAIR 250/50 DISKUS INH SCH ×2 (07:55→19:30)
[2017-05-01] MEDS: MUCOMYST 20% INH SCH ×2 (07:55→19:32)
[2017-05-01] MEDS: DOXYCYCLINE PO SCH ×2 (08:55→20:34)
[2017-05-01] MEDS: NEURONTIN PO SCH ×2 (08:55→20:34)
[2017-05-01] MEDS: IMDUR PO SCH (08:55)
[2017-05-01] MEDS: ALDACTONE PO SCH (08:55)
[2017-05-01] MEDS: COREG PO SCH ×2 (08:55→20:34)
[2017-05-01] MEDS: COZAAR PO SCH ×2 (08:55→20:34)
[2017-05-01] MEDS: LASIX IV SCH (08:57)
[2017-05-01] MEDS: LANOXIN PO SCH (08:57)
[2017-05-01] MEDS: SUBOXONE 8 MG/2 MG SL SCH ×2 (08:57→20:34)
[2017-05-01] MEDS: ASPIRIN PO SCH (08:58)
[2017-05-01] MEDS: MIRALAX PO SCH (08:58)
[2017-05-01] MEDS: GLUCOPHAGE PO SCH ×2 (09:02→16:06)
[2017-05-01] MEDS: PROTONIX PO SCH (16:06)
[2017-05-01] MEDS: LOVENOX SUBQ SCH (16:06)
--- NOTE | 2017-05-01 19:13 | PROGRESS NOTE ---
DATE: 05/01/2017 SUBJECTIVE: The patient is still short of breath on exertion. No chest pain. No swelling of feet. REVIEW OF SYSTEMS: None reported. PHYSICAL EXAMINATION: Vital Signs: Afebrile. Vitals are stable. 2 L nasal cannula 93%. HEENT Examination: plethoric face. Chest: Decreased wheezing. Heart: Sounds are regular. Abdomen: Belly is soft, nontender. No peripheral edema. INVESTIGATIONS: Chest x-ray: Right lower lobe infiltrate slowly improving. Labs: ABG on room air: pH is 7.36, pCO2 76, PO2 49 on room air. ASSESSMENT AND PLAN: 1. Acute chronic obstructive pulmonary disease with right lower lobe pneumonia. Continue doxycycline and Zosyn. He will qualify for home oxygen 2 L. Continue on bronchodilators. 2. Hypercapnia, chronic respiratory failure, acute smoking. We will use BiPAP versus CPAP. 3. Social Service consultation. I will hold the discharge. We will make arrangements. The patient is seeking short-term disability. LEVEL OF DOCUMENTATION: 25 minutes. cc: Trenton Valdes MD MTDD
[2017-05-01] MEDS: PRAVACHOL PO SCH (20:34)
[2017-05-02] MEDS: ZOSYN 3.375 GM in NS 50 ML IV SCH ×2 (03:56→10:32)
[2017-05-02] MEDS: SOLU-MEDROL IV SCH (06:11)
[2017-05-02] MEDS: HUMALOG SUBQ SCH ×2 (06:13→12:20)
[2017-05-02] MEDS: SPIRIVA INH SCH (07:57)
[2017-05-02] MEDS: ADVAIR 250/50 DISKUS INH SCH (07:57)
[2017-05-02] MEDS: BREO ELLIPTA 100/25 MCG INH INH SCH (07:57)
[2017-05-02] MEDS ORDERED: PREVNAR 13 IM ONE (08:00)
[2017-05-02] MEDS: LANOXIN PO SCH (10:22)
[2017-05-02] MEDS: GLUCOPHAGE PO SCH (10:28)
[2017-05-02] MEDS: IMDUR PO SCH (10:28)
[2017-05-02] MEDS: NEURONTIN PO SCH (10:28)
[2017-05-02] MEDS: ALDACTONE PO SCH (10:28)
[2017-05-02] MEDS: SUBOXONE 8 MG/2 MG SL SCH (10:29)
[2017-05-02] MEDS: LASIX IV SCH (10:30)
[2017-05-02] MEDS: MIRALAX PO SCH (10:30)
[2017-05-02] MEDS: ASPIRIN PO SCH (10:31)
[2017-05-02] MEDS: DOXYCYCLINE PO SCH (10:31)
[2017-05-02] MEDS: COZAAR PO SCH (10:31)
[2017-05-02] MEDS: COREG PO SCH (10:32)
[2017-05-02 11:07] VITALS: BP 123/75
[2017-05-02] MEDS: MUCOMYST 20% INH SCH (11:26)
--- NOTE | 2017-05-02 20:58 | DISCHARGE SUMMARY ---
ADMISSION DATE: 04/23/2017 DISCHARGE DATE: 05/02/2017 DISCHARGING DIAGNOSIS: Acute respiratory failure due to chronic obstructive pulmonary disease exacerbation. SECONDARY DIAGNOSES: 1. Chronic tobacco abuse. 2. History of asthmatic bronchitis. 3. Type 2 diabetes. 4. Metabolic syndrome. 5. Hypertension. 6. Chronic hepatitis C. 7. Hyperlipidemia. 8. Chronic systolic heart failure due to ischemic cardiomyopathy, ejection fraction 40% with pulmonary hypertension. 9. Right lower lobe pneumonia. 10. Allergic reaction to the Levaquin. PROCEDURES: 1. Noninvasive ventilator support with BiPAP. 2. Home oxygen with PO2 49 on room air and hypercarbia. BRIEF HISTORY: Please see the H and P that was done on 04/23/2017. In brief, he is a 52-year-old white gentleman with above problems, who was admitted to the hospital with shortness of breath, cough, wheezing. No chest pain, with pedal edema. The patient continues to smoke. Chest x-ray showed right lower lobe pneumonia. The patient was admitted in [facility]. HOSPITAL COURSE: He was given BiPAP machine with oxygen, bronchodilators, IV antibiotics, IV steroids. Edema much improved after IV Lasix. Patient developed itching due to Levaquin. Despite aggressive bronchial toilet and IV antibiotics, patient continued to be hypoxic on room air. He also needed noninvasive ventilator support at bedtime. Culinary Worker was consulted. He qualified for home oxygen. Also given strongly to quit smoking. Patient also has chronic pain, under Dr. Faustin on [facility]. At the time of discharge, he has less wheezing. Chest x-ray slightly improved in the right lower lobe pneumonia and he was anxious to go home. LABORATORIES: At the time of discharge, as follows. CBC: White cell count 8.7, hematocrit 48, platelets 141,000. ABG on room air at the time of discharge after treatment for 10 days: PH is 7.36, pCO2 76, PO2 49. SMA 7: Sodium 140, potassium 5.1, chloride 96, BUN 31, creatinine 1.0, glucose 228. LFTs were normal. Chest x-ray: Right lower lobe pneumonia. DISCHARGE INSTRUCTIONS: 1. Pneumococcal vaccine 05/02/2017 given. 2. Home oxygen 2 L. 3. CPAP machine at nighttime. 4. Quit smoking. 5. Lanoxin 125 mcg daily, Proventil rescue inhaler as needed, Pravastatin 40 daily, Coreg 6.25 mg p.o. b.i.d., aspirin 325 daily, Protonix 40 daily, metformin 1000 p.o. b.i.d., isosorbide 30 mg daily, Advair 250/50 one puff p.o. b.i.d., Aldactone 25 mg daily, losartan 25 p.o. b.i.d., Lasix 40 daily, Neurontin 300 p.o. b.i.d., MiraLAX 17 g daily, Robaxin 750 p.o. q. 8, Medrol Dosepak, Augmentin 875 1 tablet p.o. b.i.d. 6. Follow up chest x-ray in 10 days in my office. 7. Short-term disability for 2 weeks. cc: Trenton Valdes MD
== END 2017-05-02 12:56 | disposition home or self-care (01) ==
LOC: DIRADM 14:16 → 4N 15:40 → 3S 04-24 17:39
PROVIDERS: ADMIT Internal Medicine; ATTEND Internal Medicine

== ENCOUNTER 2019-05-12 15:51 | Inpatient (IN) ==
[2019-05-12] MEDS ORDERED: ROBAXIN PO PRN (17:11)
[2019-05-12 17:48] LABS: ALLEN TEST YES; BE 11.3 mmoll (-3.0-3.0); BLOOD TYPE ARTERIAL; HCO3-(ACT) 33.3 mmoll (20.0-26.0); METHB 0.6 % (0.0-1.5); O2(CT) 19.5 mL/dL (15.0-23.0); PO2(98.6) 60 mmHg (60-100); SAMPLE BLOOD; SAO2 94.2 % (95.0-100.0); THB 16.4 g/dL (11.5-17.4); pH(98.6) 7.36 (7.35-7.45)
[2019-05-12 17:50] LABS: O2HB 84.6 % (95.0-99.0); PCO2(98.6) 72 mmHg (35-45)
[2019-05-12 17:51] LABS: MODALITY CANNULA
[2019-05-12 18:07] LABS: BASO# 0.02 X1000 (0.0-0.2); BASO% 0.2 % (0.0-0.8); EOS# 0.15 X1000 (0.0-0.7); EOS% 1.6 % (0.0-10.0); HEMATOCRIT 51.2 % (42.0-52.0); HEMOGLOBIN 16.3 g/dL (14.0-18.0); IMM GRAN# 0.02 X1000 (0.0-0.04); IMM GRAN% 0.2 % (0.0-0.5); LYMPH# 2.24 X1000 (1.2-3.4); LYMPH% 23.5 % (20.5-51.1); MCHC 31.8 g/dL (33-37); MCV 91.1 FL (81-99); MONO# 0.71 X1000 (0.11-0.59); MONO% 7.4 % (1.7-9.3); MPV 9.9 FL (7.4-10.4); NEUT# 6.41 X1000 (1.4-6.5); NEUT% 67.1 % (42.2-75.2); PLT 164 X1000 (130-400); RBC 5.62 XMIL (4.7-6.1); RDW 13.8 % (11.5-14.5); WBC 9.55 X1000 (4.8-10.8)
[2019-05-12] MEDS: SOLU-MEDROL IV SCH (18:08)
[2019-05-12] MEDS: LOVENOX SUBQ SCH (18:08)
[2019-05-12] MEDS: ZOSYN 3.375 GM in NS 50 ML IV SCH ×2 (18:09→23:22)
--- NOTE | 2019-05-12 18:14 | EKG Report ---
Test Performed on : 05/12/2019 5:15:35 PM Test Reason : chest pain Blood Pressure : / mmHG Vent. Rate : 074 BPM Atrial Rate : 074 BPM P-R Int : 138 ms QRS Dur : 116 ms QT Int : 402 ms P-R-T Axes : 069 -71 093 degrees QTc Int : 446 ms Sinus rhythm. with premature ventricular complexes. or fusion complexes Incomplete right bundle branch block Left anterior fascicular block Anterolateral infarct , age undetermined Abnormal ECG When compared with ECG of 24-APR-2018 13:52, fusion complexes are now present T wave inversion now evident in Anterior leads Confirmed by Minor AMIN, Pradeep Meraz ([id number]) on 05/13/2019 7:42:06 AM
[2019-05-12 18:16] LABS: HEMOGLOBIN A1C 8.7 % (4.8-6.0)
[2019-05-12 18:50] LABS: AGAP 14; BUN 10 mg/dL (8-22); CALCIUM 8.9 mg/dL (8.8-10.2); CHLORIDE 93 mmol/L (98-107); CK PROFILE 71 U/L (24-204); COSMO 277; CREATININE 0.7 mg/dL (0.7-1.2); ESTIMATED GFR > 60; GLUCOSE 172 mg/dL (70-104); POTASSIUM 4.4 mmol/L (3.5-5.1); SODIUM 137 mmol/L (136-145); TCO2 30 mmol/L (25-35)
[2019-05-12] MEDS: NEXIUM IV SCH (19:02)
[2019-05-12] MEDS: ZITHROMAX 500 MG/NS 500 MG/250 ML IVPB IV SCH (19:02)
[2019-05-12] MEDS: ADVAIR 250/50 DISKUS INH SCH (19:34)
--- NOTE | 2019-05-12 21:55 | HISTORY AND PHYSICAL ---
CHIEF COMPLAINT: Shortness of breath, cough, wheezing for the last 1 week. HISTORY OF PRESENT ILLNESS: He is a 54-year-old, white gentleman, noncompliant, with a known history of COPD, ischemic cardiomyopathy, noncompliant. Came in with the above symptoms. Patient is extremely wheezing on exertion. Pulse oximetry 86 percent. Smoking. Chest x-ray: COPD changes. Basically admitted to the hospital for acute COPD exacerbation. Denies of any chest pain. No PND. No orthopnea. No swelling of feet. PAST MEDICAL HISTORY: 1. Reactive airway disease. 2. COPD. 3. Type 2 diabetes. 4. Metabolic syndrome. 5. Hypertension. 6. Hyperlipidemia. 7. Chronic hepatitis C virus. 8. CAD with ischemic cardiomyopathy. PAST SURGICAL HISTORY: 1. Right middle finger amputation. 2. 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 3. Stent in the LAD. 4. Cholecystectomy. ALLERGIES: Reported to [facility]. MEDICATIONS: 1. Lanoxin 125 daily. 2. Pravastatin 40 daily. 3. Coreg 6.25 p.o. b.i.d. 4. Aspirin 325 daily. 5. Metformin 1000 p.o. b.i.d. 6. Isosorbide 30 mg daily. 7. Advair 250/50 one puff b.i.d. 8. Aldactone 25 daily. 9. Losartan 25 p.o. b.i.d. 10. Neurontin 300 p.o. b.i.d. 11. MiraLAX 17 g daily. 12. Suboxone strips. 13. Ibuprofen as needed. SOCIAL HISTORY: Lives in [place]. Smoking half a pack a day. Working for [employer]. . One child. FAMILY HISTORY: Father of heart failure at 74. Mom was healthy. HEALTH MAINTENANCE: Flu vaccine in 2017. Pneumococcal vaccine was given on 05/02/2017. REVIEW OF SYSTEMS: HEENT: No headache, no vision problem, no earache, no sore throat. Neck: No goiter. No lymphadenopathy. No bruit. Cardiopulmonary: No chest pain, shortness of breath, cough, wheezing. No PND. No orthopnea. GI: No nausea, vomiting, abdominal pain. No bleeding per rectum. : No history of hesitancy, frequency, dysuria. No swelling of feet. No joint pains. Neurologic: No focal symptoms or weakness. PHYSICAL EXAMINATION: VITAL SIGNS: Temperature is 98 degrees, pulse 79, blood pressure is 150/82, 6 feet tall, 283 pounds. HEENT: Mild respiratory distress. Atraumatic, normocephalic. Pupils equal, reactive to light. TMs are normal. Nose and throat within normal limits. NECK: Supple. No lymphadenopathy. CHEST: Bilateral expiratory wheezing. HEART: Sounds are very distant. Belly is soft, obese, nontender. Good bowel sounds. EXTREMITIES: No peripheral edema, cyanosis. NEUROLOGIC: No obvious neurological deficits. INVESTIGATIONS: CBC: White cell count 9.5, hematocrit 51, platelet 164,000. ABGs: PH is 7.36, pCO2 72, pO2 is 60. Oxyhemoglobin 84.6, carboxyhemoglobin 99.06. SMA 7 is normal. Glucose 172, A1c 8.7. ProBNP is slightly elevated. Chest x-ray: Interstitial fibrosis. ASSESSMENT AND PLAN: A 54-year-old, white gentleman admitted to the hospital with: 1. Acute chronic obstructive pulmonary disease exacerbation. Plan is to quit smoking, Nicotrol patches, intravenous Zosyn, intravenous Zithromax, intravenous steroids. 2. Type 2 diabetes, poorly controlled due to noncompliance. Continue sliding scale with insulin coverage. Continue on metformin. 3. Ischemic cardiomyopathy, stent in the left anterior descending. Continue on Lanoxin, Lasix, isosorbide, Cozaar. 4. Chronic pain, on Suboxone. 5. Deep venous thrombosis and gastrointestinal prophylaxis, as per order sheet. 6. Pneumococcal vaccine 13 was given in 2017. 7. Constipation, on MiraLax. 8. Will follow up. cc: Trenton Valdes MD
[2019-05-12] MEDS: NEURONTIN PO SCH (22:34)
[2019-05-12] MEDS: SUBOXONE 8 MG/2 MG FILM SL SCH (22:34)
[2019-05-12] MEDS: COZAAR PO SCH (22:34)
[2019-05-12] MEDS: HUMALOG SUBQ SCH (22:35)
[2019-05-12] MEDS: PRAVACHOL PO SCH (22:37)
[2019-05-12] MEDS: GLUCOPHAGE PO SCH (22:39)
[2019-05-13] MEDS: SOLU-MEDROL IV SCH ×3 (01:37→16:41)
[2019-05-13] MEDS: ZOSYN 3.375 GM in NS 50 ML IV SCH ×4 (05:15→22:25)
[2019-05-13] MEDS: HUMALOG SUBQ SCH ×4 (06:31→20:37)
[2019-05-13 07:40] LABS: CHOLESTEROL 193 mg/dL (0-200); HDL 38 mg/dL (35-55); LDL 136 mg/dL; TRIGLYCERIDES 94 mg/dL (39-160); VLDL 19 mg/dL
[2019-05-13] MEDS: ADVAIR 250/50 DISKUS INH SCH ×2 (07:49→19:37)
[2019-05-13] MEDS: ASPIRIN PO SCH (09:28)
[2019-05-13] MEDS: LANOXIN PO SCH (09:29)
[2019-05-13] MEDS: ALDACTONE PO SCH (09:29)
[2019-05-13] MEDS: LASIX PO SCH (09:29)
[2019-05-13] MEDS: GLUCOPHAGE PO SCH ×2 (09:29→20:37)
[2019-05-13] MEDS: NEURONTIN PO SCH ×2 (09:30→20:37)
[2019-05-13] MEDS: IMDUR PO SCH (09:30)
[2019-05-13] MEDS: MIRALAX PO SCH (09:30)
[2019-05-13] MEDS: COZAAR PO SCH ×2 (09:30→20:37)
[2019-05-13] MEDS: SUBOXONE 8 MG/2 MG FILM SL SCH (09:32)
[2019-05-13] MEDS: SODIUM CHLORIDE 0.9% INJ SCH (16:41)
[2019-05-13] MEDS: NEXIUM IV SCH (16:41)
[2019-05-13] MEDS: LOVENOX SUBQ SCH (16:41)
[2019-05-13] MEDS: ZITHROMAX 500 MG/NS 500 MG/250 ML IVPB IV SCH (17:22)
[2019-05-13] MEDS: SUBOXONE 8 MG/2 MG SL SCH (20:37)
[2019-05-13] MEDS: AMBIEN PO SCH (20:37)
[2019-05-13] MEDS: PRAVACHOL PO SCH (20:37)
--- NOTE | 2019-05-13 21:09 | PROGRESS NOTE ---
DATE: 05/13/2019 SUBJECTIVE: The patient has shortness of breath. No chest pain. Obviously, the patient stopped taking all the cardiac medicine, cholesterol medicine and diabetic medicines for a while. Continues to smoke. Noncompliant. Complains of insomnia. PHYSICAL EXAMINATION: Vital signs: Temperature is 97.6 degrees, pulse 78, blood pressure is 123/68, 92% on nasal cannula. HEENT: Within normal limits. Plethoric face. Chest: Bilateral wheezing. Heart: Distant heart sounds. Abdomen: Belly is soft, obese. Neurologic: No obvious deficits. INVESTIGATIONS: Discussed with the patient. PCO2 is 72, PO2 is 60. SMA 7 is normal. A1c 8.7, LDL 136. ASSESSMENT AND PLAN: 1. Acute chronic obstructive pulmonary disease exacerbation. Continue present treatment with IV steroids and IV antibiotics with Zithromax and Zosyn, bronchodilators. 2. Type 2 diabetes. Stop taking metformin. Restart and follow sliding scale with insulin coverage. 3. Hyperlipidemia. LDL is high. We will restart on pravastatin 40 mg daily. 4. Chronic pain on Suboxone. 5. Constipation prophylaxis with MiraLAX. 6. Deep vein thrombosis and gastrointestinal prophylaxis. 7. Added Ambien for sleep and will follow up. LEVEL OF DOCUMENTATION: 25 minutes. cc: Trenton Valdes MD MTDD
[2019-05-14] MEDS: SOLU-MEDROL IV SCH ×3 (01:15→17:00)
[2019-05-14] MEDS: ZOSYN 3.375 GM in NS 50 ML IV SCH ×4 (05:07→22:59)
[2019-05-14] MEDS: HUMALOG SUBQ SCH ×4 (06:46→21:36)
[2019-05-14] MEDS: MIRALAX PO SCH (08:17)
[2019-05-14] MEDS: NICODERM PATCH TD PRN (08:17)
[2019-05-14] MEDS: ASPIRIN PO SCH (08:19)
[2019-05-14] MEDS: LASIX PO SCH (08:20)
[2019-05-14] MEDS: GLUCOPHAGE PO SCH ×2 (08:20→21:35)
[2019-05-14] MEDS: LANOXIN PO SCH (08:20)
[2019-05-14] MEDS: ALDACTONE PO SCH (08:21)
[2019-05-14] MEDS: IMDUR PO SCH (08:21)
[2019-05-14] MEDS: SUBOXONE 8 MG/2 MG SL SCH ×2 (08:21→21:32)
[2019-05-14] MEDS: NEURONTIN PO SCH ×2 (08:22→21:36)
[2019-05-14] MEDS: COZAAR PO SCH ×2 (08:22→21:35)
[2019-05-14] MEDS: ADVAIR 250/50 DISKUS INH SCH ×2 (10:12→19:36)
[2019-05-14] MEDS: NEXIUM IV SCH (16:58)
[2019-05-14] MEDS: LOVENOX SUBQ SCH (16:59)
[2019-05-14] MEDS: SODIUM CHLORIDE 0.9% INJ SCH (16:59)
[2019-05-14] MEDS: ZITHROMAX 500 MG/NS 500 MG/250 ML IVPB IV SCH (17:00)
[2019-05-14] MEDS: AMBIEN PO SCH (21:32)
[2019-05-14] MEDS: PRAVACHOL PO SCH (21:35)
--- NOTE | 2019-05-14 21:41 | PROGRESS NOTE ---
DATE: 05/14/2019 SUBJECTIVE: The patient is doing better and complains of wheezing. PHYSICAL EXAMINATION: Vital Signs: Temperature is 98 degrees. Vitals are stable. 93% nasal cannula. General: Plethoric face. Chest: Wheezing. Heart: Sounds distant. Abdomen: Belly is soft, nontender. Neurologic: No obvious deficits. ASSESSMENT AND PLAN: 1. Acute chronic obstructive pulmonary disease exacerbation. Continue present treatment. 2. Ischemic cardiomyopathy, currently stable on present treatment. 3. Discussed with the patient at a long time that he needs to continue for management for diabetes, hyperlipidemia, ischemic heart disease, and quit smoking. 4. Chronic pain, on Suboxone [facility]. 5. We restarted all his home medications except the digoxin. 6. Insomnia, stable. LEVEL OF DOCUMENTATION: 25 minutes. cc: Trenton Valdes MD
[2019-05-15] MEDS: SOLU-MEDROL IV SCH ×3 (04:18→16:51)
[2019-05-15] MEDS: ZOSYN 3.375 GM in NS 50 ML IV SCH ×4 (04:19→23:05)
[2019-05-15] MEDS: HUMALOG SUBQ SCH ×4 (06:14→20:35)
[2019-05-15] MEDS: ADVAIR 250/50 DISKUS INH SCH ×2 (08:12→19:26)
[2019-05-15] MEDS: MIRALAX PO SCH (08:37)
[2019-05-15] MEDS: ALDACTONE PO SCH (08:38)
[2019-05-15] MEDS: COZAAR PO SCH ×2 (08:38→20:35)
[2019-05-15] MEDS: NEURONTIN PO SCH ×2 (08:38→20:35)
[2019-05-15] MEDS: IMDUR PO SCH (08:38)
[2019-05-15] MEDS: GLUCOPHAGE PO SCH ×2 (08:38→20:35)
[2019-05-15] MEDS: LASIX PO SCH (08:38)
[2019-05-15] MEDS: SUBOXONE 8 MG/2 MG SL SCH ×2 (08:42→20:34)
[2019-05-15] MEDS: NICODERM PATCH TD PRN (12:24)
[2019-05-15] MEDS: ASPIRIN PO SCH (12:24)
[2019-05-15] MEDS: LOVENOX SUBQ SCH (18:18)
[2019-05-15] MEDS: SODIUM CHLORIDE 0.9% INJ SCH (18:19)
[2019-05-15] MEDS: NEXIUM IV SCH (18:19)
[2019-05-15] MEDS: ZITHROMAX 500 MG/NS 500 MG/250 ML IVPB IV SCH (18:21)
[2019-05-15] MEDS: PRAVACHOL PO SCH (20:34)
[2019-05-15] MEDS: AMBIEN PO SCH (20:35)
--- NOTE | 2019-05-15 20:52 | PROGRESS NOTE ---
DATE: 05/15/2019 SUBJECTIVE: The patient is doing better. Wheezing is improving. No chest pain. No shortness of breath. He is going to comply with my instructions not to stop any medicines for underlying ischemic heart disease, ischemic cardiomyopathy, and diabetes. REVIEW OF SYSTEMS: None reported. PHYSICAL EXAMINATION: Vital Signs: Temperature is 98 degrees, pulse 68. Vitals are stable. HEENT: Within normal limits. Lungs: Decreased wheezing. Heart: Sounds are regular. Abdomen: Belly is soft, nontender. Neurologic: No obvious deficits. ASSESSMENT AND PLAN: 1. Acute chronic obstructive pulmonary disease is improving. Will repeat the blood gas on room air, evaluation of oxygen. Continue on intravenous steroids, Advair, intravenous antibiotics with Zosyn and Zithromax. 2. Type 2 diabetes, on metformin. 3. Ischemic cardiomyopathy. Continue present treatment. 4. Chronic pain, on Suboxone [facility]. 5. Vaccinations are up-to-date. 6. Will do the blood gas tomorrow morning. LEVEL OF DOCUMENTATION: 25 minutes. cc: Trenton Valdes MD
[2019-05-16] MEDS: SOLU-MEDROL IV SCH ×2 (01:54→09:26)
[2019-05-16 04:59] LABS: ALLEN TEST YES; BE 7.1 mmoll (-3.0-3.0); BLOOD TYPE ARTERIAL; HCO3-(ACT) 30.3 mmoll (20.0-26.0); METHB 0.8 % (0.0-1.5); O2(CT) 21.2 mL/dL (15.0-23.0); O2HB 91.7 % (95.0-99.0); PO2(98.6) 67 mmHg (60-100); SAMPLE BLOOD; SAO2 94.1 % (95.0-100.0); THB 16.5 g/dL (11.5-17.4); pH(98.6) 7.29 (7.35-7.45)
[2019-05-16 05:01] LABS: PCO2(98.6) 78 mmHg (35-45)
[2019-05-16 05:02] LABS: MODALITY CANNULA
[2019-05-16] MEDS ORDERED: DUONEB (A & A) INH ONE (05:24)
[2019-05-16] MEDS: ZOSYN 3.375 GM in NS 50 ML IV SCH (06:05)
[2019-05-16] MEDS: HUMALOG SUBQ SCH (06:05)
[2019-05-16 07:35] VITALS: BP 119/70
[2019-05-16] MEDS: ADVAIR 250/50 DISKUS INH SCH (08:12)
[2019-05-16] MEDS ORDERED: FLU VACCINE IM ONE (08:43)
[2019-05-16] MEDS: LASIX PO SCH (09:26)
[2019-05-16] MEDS: NEURONTIN PO SCH (09:26)
[2019-05-16] MEDS: COZAAR PO SCH (09:26)
[2019-05-16] MEDS: ALDACTONE PO SCH (09:26)
[2019-05-16] MEDS: IMDUR PO SCH (09:26)
[2019-05-16] MEDS: SUBOXONE 8 MG/2 MG SL SCH (09:26)
[2019-05-16] MEDS: ASPIRIN PO SCH (09:26)
[2019-05-16] MEDS: GLUCOPHAGE PO SCH (09:26)
[2019-05-16] MEDS: MIRALAX PO SCH (09:27)
--- NOTE | 2019-05-18 11:48 | DISCHARGE SUMMARY ---
ADMISSION DATE: 05/12/2019 DISCHARGE DATE: 05/16/2019 DISCHARGING DIAGNOSES: 1. Acute chronic obstructive pulmonary disease exacerbation along with reactive airway disease. 2. Type 2 diabetes. 3. Metabolic syndrome. 4. Chronic pain on Suboxone [facility]. 5. Hypertension. 6. Hyperlipidemia. 7. Chronic hepatitis C virus. 8. Coronary artery disease with ischemic cardiomyopathy, stent in the left anterior descending. 9. Noncompliant. BRIEF HISTORY: Please see the H and P that was done 05/12/2019. In brief, he is a 54-year-old, white gentleman noncompliant, stopped taking all the medicines, came in with cough, shortness of breath, wheezing. Chest x-ray: COPD with interstitial fibrosis. HOSPITAL COURSE: Patient was given oxygen, bronchodilators, IV steroids, IV antibiotics. Nicotine patches were given. He stopped taking all the medicines. I spent more than 25 minutes to comply with medications with underlying diabetes, hyperlipidemia and CAD. He does not want to take digoxin. The rest of the hospital course was uneventful. He got better after the treatment. LABORATORY DATA: CBC: White cell count 9.5, hematocrit 51, platelets 164,000. ABG: pH is 7.29, pCO2 78, PO2 67 on 32%. SMA 7 is normal. Sugar is running 250. ProBNP 346. Cardiac enzymes were negative. Triglycerides 94, cholesterol 193, LDL is 136. Chest x-ray was stable. DISCHARGE INSTRUCTIONS: 1. Flu vaccine 05/16/2019. 2. Pneumococcal [id number] MEDICATIONS: 1. Pravastatin 40 mg daily. 2. Aspirin 325 daily. 3. Metformin 1000 p.o. b.i.d. 4. Isosorbide 30 mg daily. 5. Advair 250/50 one puff b.i.d. 6. Aldactone 25 daily. 7. Losartan 25 p.o. b.i.d. 8. Lasix 40 daily. 9. Neurontin 300 b.i.d. 10. MiraLAX 17 g daily. 11. Robaxin as needed. 12. Medrol Dosepak. 13. Doxycycline 100 p.o. b.i.d. FOLLOWUP: Follow up in my office on Sunday. cc: MD ARTIE Drummond
== END 2019-05-16 09:47 | disposition home or self-care (01) | DRG 192 ==
LOC: INTOOBSV 15:51 → OBSVTOIN 15:51 → DIRADM 15:51 → 3N 16:50
PROVIDERS: ADMIT Internal Medicine; ATTEND Internal Medicine

== ENCOUNTER 2019-06-02 16:36 | Inpatient (IN) ==
[2019-06-02] MEDS ORDERED: SODIUM CHLORIDE 0.9% INJ SCH (17:45)
[2019-06-02 18:07] LABS: ALLEN TEST YES; BE 5.1 mmoll (-3.0-3.0); BLOOD TYPE ARTERIAL; HCO3-(ACT) 28.3 mmoll (20.0-26.0); METHB 0.7 % (0.0-1.5); O2(CT) 18.7 mL/dL (15.0-23.0); SAMPLE BLOOD; SAO2 82.6 % (95.0-100.0); pH(98.6) 7.34 (7.35-7.45)
[2019-06-02 18:12] LABS: MODALITY ROOM AIR; PCO2(98.6) 62 mmHg (35-45)
[2019-06-02 18:13] LABS: O2HB 78.7 % (95.0-99.0); PO2(98.6) 44 mmHg (60-100)
[2019-06-02] MEDS: DUONEB (A & A) INH PRN (18:21)
[2019-06-02 18:28] LABS: HEMATOCRIT 49.8 % (42.0-52.0); HEMOGLOBIN 16.3 g/dL (14.0-18.0); MCHC 32.7 g/dL (33-37); MCV 88.5 FL (81-99); MPV 10.5 FL (7.4-10.4); RBC 5.63 XMIL (4.7-6.1); WBC 4.39 X1000 (4.8-10.8)
[2019-06-02] MEDS: LOVENOX SUBQ SCH (18:32)
[2019-06-02] MEDS: SOLU-MEDROL IV SCH (18:32)
[2019-06-02] MEDS: PROTONIX IV SCH (18:32)
[2019-06-02 18:55] LABS: AGAP 10; BUN 14 mg/dL (8-22); C REACTIVE PROT QUANT 5.56 mg/L (0.00-5.00); CALCIUM 8.2 mg/dL (8.8-10.2); CHLORIDE 96 mmol/L (98-107); CK PROFILE 45 U/L (24-204); COSMO 277; CREATININE 0.9 mg/dL (0.7-1.2); ESTIMATED GFR > 60; GLUCOSE 175 mg/dL (70-104); POTASSIUM 5.7 mmol/L (3.5-5.1); SODIUM 136 mmol/L (136-145); TCO2 30 mmol/L (25-35)
[2019-06-02] MEDS: ZITHROMAX 500 MG/NS 500 MG/250 ML IVPB IV SCH (19:13)
[2019-06-02] MEDS: ZOSYN 3.375 GM in NS 50 ML IV SCH (19:20)
[2019-06-02] MEDS ORDERED: ROBAXIN PO PRN (19:26)
[2019-06-02] MEDS: COZAAR PO SCH (20:11)
[2019-06-02] MEDS: NEURONTIN PO SCH (20:11)
[2019-06-02] MEDS: COREG PO SCH (20:11)
[2019-06-02] MEDS: PRAVACHOL PO SCH (20:11)
[2019-06-02] MEDS: NICODERM PATCH TD SCH (20:11)
[2019-06-02] MEDS ORDERED: KLONOPIN PO ONE (20:48)
[2019-06-02] MEDS: HUMULIN R SUBQ SCH (20:51)
--- NOTE | 2019-06-02 20:57 | Diag Imaging Result Doc PS360 ---
EXAM: CHEST-2 VIEWS INDICATION: SOB TECHNIQUE: 2 views COMPARISON: 04/28/2018 FINDINGS: The lungs are grossly clear. There is no discrete pleural fluid collection or pneumothorax. The cardiomediastinal silhouette and central vasculature are grossly unremarkable. IMPRESSION: No evidence of acute pathology by plain radiograph. Electronically signed by Samir Shell 06/02/2019 8:55 PM
[2019-06-02] MEDS: SUBOXONE 8 MG/2 MG SL SCH (22:12)
[2019-06-03] MEDS: ZOSYN 3.375 GM in NS 50 ML IV SCH ×5 (01:04→23:33)
[2019-06-03] MEDS: SOLU-MEDROL IV SCH ×3 (03:00→17:07)
--- NOTE | 2019-06-03 03:15 | HISTORY AND PHYSICAL ---
CHIEF COMPLAINT: Shortness of breath, cough and wheezing for the last 1 week. HISTORY OF PRESENT ILLNESS: He is a 54-year-old white gentleman, noncompliant, still smoking, a known history of COPD, ischemic cardiomyopathy, recently discharged 2 weeks ago, came to my office with his mother with dyspnea on exertion cough, wheezing., very pale, cyanotic, oxygen level 81%. He is moderately wheezing, admitted directly to the hospital for acute COPD exacerbation. He uses oxygen at home. PO2 is 44 on room air. As a result he was readmitted to the hospital. PAST MEDICAL HISTORY: 1. Reactive airway disease. 2. Chronic obstructive pulmonary disease. 3. Type 2 diabetes. 4. Metabolic syndrome . 5. Hypertension. 6. Hyperlipidemia. 7. Chronic hepatitis C virus. 8. Coronary artery disease with ischemic cardiomyopathy. PAST SURGICAL HISTORY: 1. Right middle finger amputation. 2. 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 3. A stent in the LAD. 4. Cholecystectomy. ALLERGIES: Reported to [facility]. MEDICATIONS: 1. Pravastatin 40 daily. 2. Coreg 6.25 p.o. b.i.d. 3. Aspirin 325 daily. 4. Metformin 1000 p.o. b.i.d. 5. Isosorbide 30 mg daily. 6. Advair 250/50 one puff b.i.d. 7. Aldactone 25 daily. 8. Losartan 25 p.o. b.i.d. 9. Neurontin 300 p.o. b.i.d. 10. MiraLAX 17 g daily. 11. Suboxone strips. SOCIAL HISTORY: He lives in [place]. He smokes half a pack a day. He is working for [employer]. He is ., has 1 child. FAMILY HISTORY: Father of heart failure at age 74. Mom is still healthy. HEALTH MAINTENANCE.: 1. He was given flu vaccine on 05/16/2019. 2. Pneumococcal vaccine on 04/26/2017. REVIEW OF SYSTEMS: HEENT: No headache. No vision problem. No earache. No sore throat. Neck: No goiter. No lymphadenopathy. No bruit. Cardiopulmonary: No palpitations. No PND. No orthopnea. GI: No nausea, vomiting, abdominal pain. : No history of hesitancy, frequency, dysuria. Extremities: No swelling of legs. No joint pain. Neurologic: No focal symptoms or seizures. PHYSICAL EXAMINATION: VITAL SIGNS: Temperature is 99.3, pulse is 85, blood pressure 120/73, on room air 82%, cyanotic. HEENT: Atraumatic, normocephalic. Pupils are equal and reactive to light. TMs are normal. Nose and throat within normal limits. NECK: Supple. No lymphadenopathy. No goiter. CHEST: Bilateral wheezing. HEART: Sounds distant. Regular. GI: Soft, nontender. Good bowel sounds. EXTREMITIES: No peripheral edema or cyanosis. NEUROLOGIC: No obvious neurological deficits. LABORATORY INVESTIGATIONS: White cell count 4.3, hematocrit 49.8, platelets 128,000. ABG: PH is 7.34, pCO2 is 62, PO2 is 44 on room air, SMA 7: Sodium 136, potassium 5.7, chloride 96, BUN 14, creatinine 0.9, glucose 175. Cardiac enzymes were negative. CRP was 5.6. ProBNP was normal. Chest x-ray was stable. ASSESSMENT AND PLAN: 1. A 54-year-old white gentleman admitted to the hospital with acute COPD exacerbation, with hypoxemia, hypercarbia due to ongoing tobacco abuse. Plan is to quit smoking, oxygen 2 L, and continue IV Zosyn and Zithromax and IV steroids and reconcile home medicines. Started on nicotine patch. 2. DVT GI prophylaxis. As per order sheet. 3. Type 2 diabetes and sliding scale with insulin coverage. Change the diet to the diabetic diet. 4. Ischemic cardiomyopathy with stent in the left anterior descending. Continue home medicines and discontinue Lanoxin. 5. Vaccinations are up-to-date. cc: MD ARTIE Drummond
[2019-06-03] MEDS ORDERED: TYLENOL PO ONE (05:25)
[2019-06-03] MEDS: HUMULIN R SUBQ SCH ×4 (06:53→22:00)
[2019-06-03] MEDS: MIRALAX PO SCH (08:06)
[2019-06-03] MEDS: NICODERM PATCH TD SCH (08:06)
[2019-06-03] MEDS: LASIX PO SCH (08:07)
[2019-06-03] MEDS: GLUCOPHAGE PO SCH ×2 (08:07→17:06)
[2019-06-03] MEDS: NEURONTIN PO SCH ×2 (08:07→21:57)
[2019-06-03] MEDS: COZAAR PO SCH ×2 (08:07→21:57)
[2019-06-03] MEDS: IMDUR PO SCH (08:07)
[2019-06-03] MEDS: COREG PO SCH ×2 (08:07→21:57)
[2019-06-03] MEDS: ALDACTONE PO SCH (08:08)
[2019-06-03] MEDS: ASPIRIN PO SCH (08:10)
[2019-06-03] MEDS: DUONEB (A & A) INH PRN ×2 (08:16→15:50)
[2019-06-03] MEDS: ADVAIR 250/50 DISKUS INH SCH ×2 (08:17→21:48)
[2019-06-03] MEDS: SUBOXONE 8 MG/2 MG SL SCH ×2 (08:30→21:57)
[2019-06-03] MEDS: PROTONIX IV SCH (17:06)
[2019-06-03] MEDS: LOVENOX SUBQ SCH (17:06)
[2019-06-03] MEDS: ZITHROMAX 500 MG/NS 500 MG/250 ML IVPB IV SCH (17:07)
--- NOTE | 2019-06-03 20:36 | PROGRESS NOTE ---
DATE: 06/03/2019 SUBJECTIVE: Patient is a little better and decreased wheezing. No chest pain. Patient was placed on nicotine patches. REVIEW OF SYSTEMS: None reported. PHYSICAL EXAMINATION: Vital signs: Temperature is 98.2 degrees, pulse is 85, blood pressure 101/52, 2 L nasal cannula at 91%. HEENT: Cyanosis decreased over the lips. Lungs: Bilateral wheezing. Heart: Distant heart sounds. Abdomen: Belly is soft, nontender. Extremities: No edema noted. ASSESSMENT AND PLAN: 1. Acute chronic obstructive pulmonary disease exacerbation, on oxygen. Continue on nicotine patch, bronchodilators, intravenous steroids, intravenous antibiotics. 2. Type 2 diabetes, on metformin, and worsening due to steroids. Continue on sliding scale with insulin coverage. 3. Ischemic cardiomyopathy. Continue present treatment. 4. Chronic pain, on Suboxone. 5. Vaccinations were up-to-date. 6. Continue present treatment. LEVEL OF DOCUMENTATION: 25 minutes. cc: Trenton Valdes MD
[2019-06-03] MEDS: PRAVACHOL PO SCH (21:57)
[2019-06-03] MEDS ORDERED: KLONOPIN PO ONE (22:18)
[2019-06-04] MEDS: SOLU-MEDROL IV SCH ×4 (02:45→17:41)
[2019-06-04] MEDS: ZOSYN 3.375 GM in NS 50 ML IV SCH ×4 (06:45→23:52)
[2019-06-04] MEDS: HUMULIN R SUBQ SCH ×4 (06:45→21:12)
[2019-06-04] MEDS: ADVAIR 250/50 DISKUS INH SCH ×2 (08:10→20:10)
[2019-06-04] MEDS: DUONEB (A & A) INH PRN ×2 (08:10→21:57)
[2019-06-04] MEDS: SUBOXONE 8 MG/2 MG SL SCH ×2 (08:21→20:46)
[2019-06-04] MEDS: IMDUR PO SCH (08:22)
[2019-06-04] MEDS: NEURONTIN PO SCH ×2 (08:22→20:46)
[2019-06-04] MEDS: GLUCOPHAGE PO SCH ×2 (08:22→17:41)
[2019-06-04] MEDS: ALDACTONE PO SCH (08:22)
[2019-06-04] MEDS: COREG PO SCH ×2 (08:22→20:46)
[2019-06-04] MEDS: MIRALAX PO SCH (08:23)
[2019-06-04] MEDS: ASPIRIN PO SCH (08:23)
[2019-06-04] MEDS: COZAAR PO SCH ×2 (08:23→20:46)
[2019-06-04] MEDS: LASIX PO SCH (08:23)
[2019-06-04] MEDS: NICODERM PATCH TD SCH (08:23)
[2019-06-04] MEDS: ZITHROMAX 500 MG/NS 500 MG/250 ML IVPB IV SCH (17:00)
[2019-06-04] MEDS: LOVENOX SUBQ SCH (17:40)
[2019-06-04] MEDS: PROTONIX IV SCH (17:41)
[2019-06-04] MEDS: PRAVACHOL PO SCH (20:46)
[2019-06-04] MEDS: AMBIEN PO PRN (20:46)
--- NOTE | 2019-06-04 21:01 | PROGRESS NOTE ---
DATE: 06/04/2019 SUBJECTIVE: The patient complains of insomnia due to steroids. His breathing is slightly improving. No chest pain. No swelling of feet. PHYSICAL EXAMINATION: Temperature is 97.9 degrees, pulse 66, blood pressure is 104/58, on 2 L nasal cannula 97%.HEENT: Plethoric face. Cyanosis improved. Decreased wheezing. Distant heart sounds. Belly is soft, nontender. No peripheral edema, cyanosis, clubbing. INVESTIGATIONS: None reported. Blood sugars running 246. ASSESSMENT: 1. Acute chronic obstructive pulmonary disease exacerbation. 2. Chronic pain, on Suboxone. 3. Type 2 diabetes. Worsening with steroids. 4. Ischemic cardiomyopathy. PLAN OF CARE: 1. Continue present treatment. 2. Added Ambien for sleep. 3. Repeat the blood gas again on room air on Sunday prior to the discharge. 4. Vaccinations are up to date. LEVEL OF DOCUMENTATION: 25 minutes. cc: Trenton Valdes MD
[2019-06-05] MEDS: SOLU-MEDROL IV SCH ×3 (01:25→17:17)
[2019-06-05] MEDS: DUONEB (A & A) INH PRN ×2 (03:44→19:30)
[2019-06-05] MEDS: ZOSYN 3.375 GM in NS 50 ML IV SCH ×4 (04:53→23:05)
[2019-06-05] MEDS: HUMULIN R SUBQ SCH ×4 (06:18→20:48)
[2019-06-05] MEDS: ADVAIR 250/50 DISKUS INH SCH ×2 (07:44→19:29)
--- NOTE | 2019-06-05 08:37 | PROGRESS NOTE ---
DATE: 06/05/2019 SUBJECTIVE: The patient is doing better, productive cough. No chest pain. No shortness of breath. PHYSICAL EXAMINATION: Temperature is 97 degrees, pulse 58. Vitals are stable. Two liters nasal cannula 98%. HEENT Examination: Within normal limits. Chest: There is decreased wheezing. Distant heart sounds. Belly is soft, nontender. No signs of peritonitis. INVESTIGATIONS: None reported. ASSESSMENT AND PLAN: 1. Acute chronic obstructive pulmonary disease exacerbation. Continue present antibiotics and bronchodilators. We will repeat the blood gas in the morning on room air. 2. Vaccinations were up-to-date and continue present treatment with underlying medical problems. LEVEL OF DOCUMENTATION: 25 minutes. cc: Trenton Valdes MD
[2019-06-05] MEDS: GLUCOPHAGE PO SCH ×2 (08:51→17:05)
[2019-06-05] MEDS: NICODERM PATCH TD SCH (08:51)
[2019-06-05] MEDS: NEURONTIN PO SCH ×2 (08:51→20:02)
[2019-06-05] MEDS: LASIX PO SCH (08:52)
[2019-06-05] MEDS: IMDUR PO SCH (08:52)
[2019-06-05] MEDS: ALDACTONE PO SCH (08:52)
[2019-06-05] MEDS: COZAAR PO SCH ×2 (08:52→20:02)
[2019-06-05] MEDS: ASPIRIN PO SCH (08:52)
[2019-06-05] MEDS: MIRALAX PO SCH (08:53)
[2019-06-05] MEDS: SUBOXONE 8 MG/2 MG SL SCH ×2 (08:55→20:03)
[2019-06-05] MEDS: COREG PO SCH ×2 (08:57→20:02)
[2019-06-05] MEDS ORDERED: PROTONIX PO SCH (17:00)
[2019-06-05] MEDS: ZITHROMAX 500 MG/NS 500 MG/250 ML IVPB IV SCH (17:10)
[2019-06-05] MEDS: LOVENOX SUBQ SCH (17:16)
[2019-06-05] MEDS: AMBIEN PO PRN (20:03)
[2019-06-05] MEDS: PRAVACHOL PO SCH (20:03)
[2019-06-06] MEDS: SOLU-MEDROL IV SCH (01:35)
[2019-06-06 03:43] LABS: ALLEN TEST YES; BE 12.8 mmoll (-3.0-3.0); BLOOD TYPE ARTERIAL; HCO3-(ACT) 34.8 mmoll (20.0-26.0); METHB 0.9 % (0.0-1.5); O2(CT) 19.9 mL/dL (15.0-23.0); O2HB 92.4 % (95.0-99.0); SAMPLE BLOOD; SAO2 95.4 % (95.0-100.0); THB 15.3 g/dL (11.5-17.4); pH(98.6) 7.33 (7.35-7.45)
[2019-06-06 03:48] LABS: MODALITY CANNULA
[2019-06-06 03:51] LABS: PCO2(98.6) 82 mmHg (35-45)
[2019-06-06 03:55] LABS: PO2(98.6) 65 mmHg (60-100)
[2019-06-06] MEDS: ZOSYN 3.375 GM in NS 50 ML IV SCH (05:04)
[2019-06-06] MEDS: HUMULIN R SUBQ SCH (06:25)
[2019-06-06 08:38] VITALS: BP 105/52
[2019-06-06] MEDS: NICODERM PATCH TD SCH (08:57)
[2019-06-06] MEDS: COREG PO SCH (08:57)
[2019-06-06] MEDS: NEURONTIN PO SCH (08:57)
[2019-06-06] MEDS: GLUCOPHAGE PO SCH (08:58)
[2019-06-06] MEDS: SUBOXONE 8 MG/2 MG SL SCH (08:58)
[2019-06-06] MEDS: ALDACTONE PO SCH (08:58)
[2019-06-06] MEDS: LASIX PO SCH (08:58)
[2019-06-06] MEDS: COZAAR PO SCH (08:58)
[2019-06-06] MEDS: IMDUR PO SCH (08:58)
[2019-06-06] MEDS: MIRALAX PO SCH (08:59)
[2019-06-06] MEDS: ASPIRIN PO SCH (09:12)
--- NOTE | 2019-06-07 18:20 | DISCHARGE SUMMARY ---
ADMISSION DATE: 06/02/2019 DISCHARGE DATE: 06/06/2019 DISCHARGING DIAGNOSIS: Acute chronic obstructive pulmonary disease exacerbation. SECONDARY DIAGNOSES: 1. Type 2 diabetes. 2. Metabolic syndrome. 3. Chronic pain on Suboxone [facility]. 4. Ongoing tobacco abuse. 5. Hypertension. 6. Hyperlipidemia. 7. Chronic hepatitis C virus. 8. Coronary artery disease with ischemic cardiomyopathy, stent in the left anterior descending. 9. History of noncompliance. BRIEF HISTORY: Please see the H and P that was done on 06/02/2019. In brief, he is a 54-year-old white gentleman with above problems readmitted to the hospital directly from my office. He was brought in with acute shortness of breath, wheezing, cyanotic, and pulse oximetry 81 percent despite oxygen. As a result, he was readmitted. He was discharged about 3 weeks ago. HOSPITAL COURSE: He was given oxygen, bronchodilators, IV antibiotics, and IV steroids. He has been working and he is not able to perform his full appointment because of this underlying chronic COPD, hypercapnia, underlying ischemic cardiomyopathy. At the time of discharge, he got maximum benefit. I did ask him to take 1 L of oxygen. LABORATORIES: CBC: White cell count 4.2, hematocrit 49.8, platelets 128,000. ABG on 28%: pH is 7.33, pCO2 is 82, pO2 is 65. Sodium 136, potassium 5.7, BUN 14, creatinine 0.9, glucose 219. Cardiac enzymes were negative. ProBNP was slightly high. STUDIES: Chest x-ray was stable. DISCHARGING INSTRUCTIONS: 1. Flu vaccine was given 05/16/2019. Pneumococcal 13 was given in 2017. 2. Pravastatin 40 mg, 3. Coreg 6.25 p.o. b.i.d. 4. Aspirin 325 daily. 5. Protonix 40 daily. 6. Metformin 1000 p.o. b.i.d. 7. Isosorbide 30 in the morning. 8. Aldactone 25 daily. 9. Losartan 35 p.o. b.i.d. 10. Lasix 40 daily. 11. MiraLAX 17 g daily. 12. Continue on outpatient Z-Demetris. 13. Nebulizers 1 q. 6. 14. Breo 1 puff daily. 15. Spiriva 1 puff daily. 16. Oxygen 1 L. 17. Quit smoking. 18. Continue on Suboxone [facility]. 19. Follow up on chronic hepatitis C in my office and maintenance care for his underlying risk factors. cc: Trenton Valdes MD
== END 2019-06-06 09:33 | disposition home or self-care (01) | DRG 192 ==
LOC: DIRADM 16:36 → 1N 17:03
PROVIDERS: ADMIT Internal Medicine; ATTEND Internal Medicine